=== PATIENT | female | born 1990 | race Caucasian/White ===

== ENCOUNTER 2025-06-04 00:26 | Emergency (ER) | payer OTHER ==
[~2025-06-04] VITALS: Ht 170.2 cm; Wt 74.8 kg
[2025-06-04 00:35] VITALS: TEMP 98.5
[2025-06-04 01:13] LABS: BASOPHILS % 0.5 % (0.0-1.0); EOSINOPHILS % 3.6 % (0.0-6.0); LYMPHOCYTES % 23.4 % (18.0-39.1); MONOCYTES % 7.3 % (4.4-11.3); NEUTROPHILS % 64.8 % (38.7-80.0); RED CELL DISTRIBUTION WIDTH 12.1 % (11.7-14.4)
[2025-06-04 01:26] LABS: EST GLOMERULAR FILTRATION RATE 94.0 ML/MIN (>=60)
[2025-06-04 01:40] LABS: LEUKOCYTE ESTERASE ,URINE NEGATIVE (NEGATIVE); PROTEIN,URINE DIPSTICK NEGATIVE (NEGATIVE)
[2025-06-04 01:41] LABS: URINE UROBILINOGEN 0.2 mg/dL (0.2 - 1)
[2025-06-04 01:48] LABS: EPITHELIAL CELLS,URINE MODERATE /LPF; WBC,URINE (MAN) 0-5 /HPF (0-5)
[2025-06-04] MEDS ORDERED: IOPAMIDOL 370 MG/ML 100 ML INFUS..BTL INJ ONE (01:51)
[2025-06-04] MEDS ORDERED: PANTOPRAZOLE SO40 MG PO (02:58)
[2025-06-04 03:00] VITALS: PULSE 76; RESP 17
[2025-06-04 03:09] VITALS: BP 114/82; O2SAT 100
== END 2025-06-04 03:11 | disposition home or self-care (01) ==
LOC: ER 00:43
DX: K29.70 Gastritis, unspecified, without bleeding (principal); D25.9 Leiomyoma of uterus, unspecified; R10.13 Epigastric pain; M54.9 Dorsalgia, unspecified; R07.89 Other chest pain; R06.00 Dyspnea, unspecified; Z88.2 Allergy status to sulfonamides
CPT/HCPCS: 36415; 71045; 74177; 80053; 81001; 83690; 84484; 84702; 85025; 93005; 99284; J2470; Q9967